=== PATIENT | female | born 2000 | race Caucasian/White ===

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

== ENCOUNTER → 2022-03-22 15:21 | Outpatient (BNVA) | payer BC, SELFPAY | PROVIDERS: Family Provider Nurse Practitioner; Visit Provider Nurse Practitioner Family | DX: M25.531 Pain in right wrist (principal) | CPT/HCPCS: 73110 ==

== ENCOUNTER → 2022-09-08 14:18 | Outpatient (BNVA) | payer BC, SELFPAY | PROVIDERS: Family Provider Nurse Practitioner; PCP Nurse Practitioner Family; Visit Provider Nurse Practitioner Family | DX: E04.9 Nontoxic goiter, unspecified (principal); R63.5 Abnormal weight gain | CPT/HCPCS: 80053; 84439; 84443; 84480; 85025 ==

== ENCOUNTER 2022-09-20 07:35 | Outpatient (CLI) | payer BC, SELFPAY ==
--- NOTE | 2022-09-20 07:45 | US_ITS ---
WS: [id number] ULTRASOUND THYROID TECHNIQUE: Ultrasound of the thyroid. CLINICAL INFORMATION: E04.9 - Nontoxic goiter, unspecified COMPARISON: None. FINDINGS: Thyroid: Right and left thyroid lobes are normal in size and echotexture. No thyroid nodules are pres ent. Right thyroid lobe: 5.3 cm x 1.5 cm x 1.3 cm Left thyroid lobe: 3.8 cm x 1.3 cm x 0.8 cm. Isthmus: 0.2 mm. Cervical lymphadenopathy: None. US/US thyroid 13522 IMPRESSION: Normal thyroid ultrasound examination.
== END 2022-09-20 07:36 | disposition home or self-care (01) ==
LOC: RAD 07:40
PROVIDERS: PCP Nurse Practitioner Family; Visit Provider Nurse Practitioner Family
DX: E04.9 Nontoxic goiter, unspecified (principal)
CPT/HCPCS: 76536